=== PATIENT | male | born 1995 | race Two or more races ===

== ENCOUNTER 2020-06-26 12:40 | Emergency (ER) | payer SELFPAY ==
[~2020-06-26] VITALS: Ht 180.3 cm; Wt 65.8 kg
--- NOTE | 2020-06-26 12:50 | NUR ---
ED Nurse Note: Pt ambulated to ED d/t RT middle finger laceration on the nail bed d/t lifting from home. Pt is AOx4, calm and cooperative, VSS, on RA, afebrile on triage. Placed on bed.
[2020-06-26 13:07] VITALS: BP 119/70
[2020-06-26] MEDS ORDERED: Tetanus/Diptheria/Pertussis IM ONE (13:30)
--- NOTE | 2020-06-26 13:57 | Emergency Room Report ---
History of Present Illness General Chief Complaint: Laceration Source: Patient (Deb Toribio) Present Illness HPI 25 yo male presents to the ED c/o 11/07 in severity pain to the RMF since this am. Pt. reports a heavy weight fell onto his finger and he quickly pulled his finger out from under it. Pt. reports it ripped his nail off. Pt. reports being right hand dominant. Pt. reports some bleeding at this time. 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 pt. reports pain is managed at the moment. He denies taking blood thinning medications. He is not sure when his last Tetanus was. No other aggravating or relieving factors at this time. (Deb Toribio) Allergies: Coded Allergies: No Known Allergies (Unverified , 06/26/20) COVID-19 Screening Contact w/high risk pt: No Experienced COVID-19 symptoms?: No COVID-19 Testing performed MIXING MACHINE OPERATOR: No (Deb Toribio) Patient History Past Medical History: see triage record Past Surgical History: none Pertinent Family History: none Reviewed Nursing Documentation: PMH: Agreed; PSxH: Agreed (Deb Toribio) Nursing Documentation-PMH Past Medical History: No Stated History (Deb Toribio) Review of Systems All Other Systems: negative except mentioned in HPI (Deb Toribio) Physical Exam Vital Signs Date Time Temp Pulse Resp B/P (MAP) Pulse Ox O2 Delivery O2 Flow Rate FiO2 06/26/20 12:41 97.9 84 18 119/70 (86) 100 Room Air Sp02 EP Interpretation: reviewed, normal General Appearance: no apparent distress, alert, GCS 15, non-toxic Head: normocephalic, atraumatic Eyes: bilateral eye normal inspection, bilateral eye PERRL ENT: hearing grossly normal, normal voice Neck: full range of motion Respiratory: lungs clear, normal breath sounds, speaking full sentences Cardiovascular #1: regular rate, rhythm Musculoskeletal: normal range of motion, gait/station normal, tender - Distal RMF Neurologic: alert, motor strength/tone normal, oriented x3, sensory intact, responsive, speech normal Psychiatric: judgement/insight normal Skin: other - complete avulsion of the RMF. there is stellate laceration of the distal nailbed. (Deb Toribio) Procedures Laceration/Wound Repair Laceration/Wound Repair : Consent: Verbal Wound Location: upper extremity - RMF Wound's Depth, Shape: stellate, nail-avulsed Wound Length (cm): 1 Wound Explored: clean Irrigated w/ Saline (ccs): 500 Anesthesia: 1% Lidocaine Volume Anesthetic (ccs): 5 Wound Repaired With: sutures Suture Size/Type: 5:0 Number of Sutures: 4 Sterile Dressing Applied?: Yes Splint Applied?: Yes Type of Splint Applied: RMF finger splint Sling Applied?: Yes Patient Tolerated: Well Complications: None Progress Nail bed was repaired using fast absorbing gut sutures (Deb Toribio) Medical Decision Making PA Attestation Dr. Guan Is my supervising Physician whom patient management has been discussed with. (Deb Toribio) Diagnostic Impression: Primary Impression: Crush injury Additional Impressions: Nail avulsion, finger Qualified Codes: S61.309A - Unspecified open wound of unspecified finger with damage to nail, initial encounter Nailbed laceration, finger Qualified Codes: S61.319A - Laceration without foreign body of unspecified finger with damage to nail, initial encounter Open fracture of tuft of distal phalanx of finger ER Course 25 yo male presents to the ED c/o 11/07 in severity pain to the RMF since this am. Pt. reports a heavy weight fell onto his finger and he quickly pulled his finger out from under it. Pt. reports it ripped his nail off. Pt. reports being right hand dominant. Pt. reports some bleeding at this time. 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 pt. reports pain is managed at the moment. He denies taking blood thinning medications. He is not sure when his last Tetanus was. No other aggravating or relieving factors at this time. Ddx considered but are not limited to subungual hematoma, nailbed laceration, fracture, nail avulsion, paronychia/eponychia just to name a few. Vital signs: are WNL, pt. is afebrile H&PE are most consistent with Right middle finger nail avulsion. open tuft fracture of the right distal phalanx. ORDERS: -X-rays Right Fingers: open tuft fracture of the right distal phalanx ED INTERVENTIONS: - Tdap -Copious irrigation of the RMF, and evaluation of the nail bed. -Nail bed laceration repait. - Finger Splint applied to the RMF by wireless technician. Pt. remains neurovascularly intact. - Right arm Sling applied by wireless technician. Pt. remains neurovascularly intact. ---D/W pt. importance of hand specialist evaluation as this is a complicated i njury to his dominant hand and repeat evaluation with close monitoring is necessary . He will be given Dr. Ramey's information for follow up. DISCHARGE: At this time pt. is stable for d/c to home. Will provide printed patient care instructions, and any necessary prescriptions. Care plan and follow up instructions have been discussed with the patient prior to discharge. (Deb Toribio) Other X-Ray Diagnostic Results Other X-Ray Diagnostic Results : X-Ray ordered: RIght fingers # of Views/Limited Vs Complete: 3 View Indication: Pain EP Interpretation: Yes PA Xray: Interpretation reviewed, by supervising MD, and agrees with findings. Interpretation: no dislocation, no soft tissue swelling, other - open tuft f racture of the right distal phalanx Impression: Other - abnormal Electronically Signed by: Deb Toribio PA-C (Deb Toribio) Other X-Ray Diagnostic Results : Electronically Signed by: Charlee Clark documentation of Xray reviewed by me and is accurate, Sherman Guan MD (Sherman Guan MD) Last Vital Signs Date Time Temp Pulse Resp B/P (MAP) Pulse Ox O2 Delivery O2 Flow Rate FiO2 06/26/20 13:07 97.9 18 119/70 100 Room Air 06/26/20 12:41 84 (Deb Toribio) Disposition: HOME, SELF-CARE Condition: Stable Scripts Hydrocodone Bit/Acetaminophen 5-325* (NORCO 5-325 TABLET*) 1 Each Tablet 1 TAB ORAL Q6H PRN for FOR PAIN, #12 TAB 0 Refills Prov: Deb Toribio 06/26/20 Amoxicillin/Potassium Clav 875-125* (AUGMENTIN 875-125 TABLET*) 1 Each Tablet 1 TAB ORAL TWICE A DAY for 7 Days, #14 TAB Prov: Deb Toribio 06/26/20 Referrals: Rashad Ramey MD [facility] Patient Instructions: Crush Injury, Fingers or Toes, [id number], Finger Fracture, [id number], Nail Avulsion Additional Instructions: Take medications as directed. Do not drink alcohol, drive, or operate heavy m achinery while taking [place] as this may cause drowsiness. Follow up with an ST[facility] S[facility]TER in 3-5 days, even if your symptoms have resolved. RECOMMEND HAND SPECIALIST SINCE THIS IS YOUR DOMINANT HAND --Please review list of primary care clinics, if you do not already have a primary care provider who can give you an Orthopedic Referral. Return sooner to ED if new symptoms occur, or current symptoms become worse. - Please note that this Emergency Department Report was dictated using [employer] installer technology software, occasionally this can lead to erroneous entry secondary to interpretation by the dictation equipment. Deb Toribio Jun 26, 2020 13:57 Sherman Guan MD Jun 30, 2020 07:30
--- NOTE | 2020-06-26 14:18 | NUR ---
ED Nurse Note: x-ray at bedside done.
--- NOTE | 2020-06-26 14:49 | Diagnostic Imaging Report ---
INDICATION: Finger pain TECHNIQUE: XRAY Fingers 2-3v R Multiple views of the right fingers were obtained COMPARISON: None FINDINGS: There is cortical irregularity of the third distal phalangeal tuft. No evidence of dislocation. Joint spaces are maintained. There is soft tissue swelling of the third distal phalanx. Epidermal irregularity is noted at the tip of the third digit. There is irregular appearance of the ungual bed. IMPRESSION: 1. Distal third phalangeal tuft fracture. 2. Distal third phalangeal laceration with suspected ungual avulsion.
[2020-06-26] MEDS ORDERED: Lidocaine 2% MPF 5ml Vial INJ ONE (15:00)
[2020-06-26] MEDS ORDERED: AUGMENTIN 875-1 EAC1 ORAL (16:07)
[2020-06-26] MEDS ORDERED: NORCO 5-325 TA1 EAC1 ORAL (16:07)
[2020-06-26 16:44] VITALS: BP 121/74
--- NOTE | 2020-06-26 16:44 | NUR ---
ER DISCHARGE NOTE: Patient is cleared to be discharged per ERPA, pt is aox4, on room air, with stable vital signs. pt was given dc and prescription instructions, pt was able to verbalize understanding, pt id band removed. pt is able to ambulate with steady gait. pt took all belongings.
== END 2020-06-26 16:44 | disposition home or self-care (01) ==
LOC: EMR 14:13
DX: S61.302A Unspecified open wound of right middle finger with damage to nail, initial encounter (principal); S62.632A Displaced fracture of distal phalanx of right middle finger, initial encounter for closed fracture; S61.212A Laceration without foreign body of right middle finger without damage to nail, initial encounter; W20.8XXA Other cause of strike by thrown, projected or falling object, initial encounter; Y92.9 Unspecified place or not applicable; Z23 Encounter for immunization
CPT/HCPCS: 90471; 90715; 99283